=== PATIENT | female | born 1970 | race Caucasian/White ===

== ENCOUNTER 2017-02-01 12:33 | Emergency (ER) | payer SELFPAY | END 2017-02-01 14:15 | disposition home or self-care (01) | LOC: FER 12:33 | DX: S16.1XXA Strain of muscle, fascia and tendon at neck level, initial encounter (principal); Z87.828 Personal history of other (healed) physical injury and trauma; Z88.1 Allergy status to other antibiotic agents; Z98.890 Other specified postprocedural states; V89.2XXA Person injured in unspecified motor-vehicle accident, traffic, initial encounter; Y92.410 Unspecified street and highway as the place of occurrence of the external cause | CPT/HCPCS: 72050; 99284 ==